=== PATIENT | female | born 1995 | race Caucasian/White ===

== ENCOUNTER 2017-12-03 18:05 | Emergency (ER) | payer OTHER ==
[2017-12-03 18:57] VITALS: BP 138/80
--- NOTE | 2017-12-03 19:29 | RAD ---
HISTORY: Left ankle pain, trauma, swelling COMPARISONS: None VIEWS: 3, Frontal, lateral, and oblique views of the left ankle FINDINGS: BONE DENSITY: Normal. BONES: There is no displaced fracture. JOINTS: There is no arthropathy. ALIGNMENT: There is no dislocation. SOFT TISSUES: There is circumferential soft tissue swelling OTHER FINDINGS: None. IMPRESSION: SOFT TISSUE SWELLING. NO ACUTE OSSEOUS INJURY. IF SYMPTOMS PERSIST, RECOMMEND REPEAT IMAGING.
--- NOTE | 2017-12-03 19:47 | UC ---
Lower Extremity/Ankle HPI - HPI Summary HPI Summary: Pt presents with left ankle pain. She tells me that earlier today she was walking down some steps and missed a step - sustained inversion injury to her left ankle. Was able to get up and ambulate, but with pain. She came to urgent care for further eval. Denies numbness, tingling, or previous injury. - History of Current Complaint Chief Complaint: UCLowerExtremity Stated Complaint: ANKLE INJURY Time Seen by Provider: 12/03/17 19:17 Hx Obtained From: Patient Hx Last Menstrual Period: 11/30/2017 Onset/Duration: Sudden Onset Severity Initially: Moderate Severity Currently: Moderate Pain Intensity: 6 Pain Scale Used: 0-10 Numeric Aggravating Factor(s): Standing, Ambulation Alleviating Factor(s): Rest, Elevation Able to Bear Weight: Yes - Allergies/Home Medications Allergies/Adverse Reactions: Allergies Allergy/AdvReac Type Severity Reaction Status Date / Time MS Penicillins [PCN] Allergy Rash Verified 12/03/17 18:57 PMH/Surg Hx/FS Hx/Imm Hx Previously Healthy: Yes - Surgical History Surgical History: None - Family History Known Family History: Positive: None - Social History Occupation: Student Lives: Dormitory/Roommates Alcohol Use: None Substance Use Type: None Smoking Status (MU): Never Smoked Tobacco Review of Systems Constitutional: Negative Skin: Negative Respiratory: Negative Cardiovascular: Negative Gastrointestinal: Negative Neurovascular: Negative Musculoskeletal: Other: - Left ankle Neurological: Negative Psychological: Negative All Other Systems Reviewed And Are Negative: Yes Physical Exam Triage Information Reviewed: Yes Appearance: Well-Appearing, No Pain Distress, Well-Nourished Vital Signs: Initial Vital Signs Temp 98.5 F 12/03/17 18:51 Pulse 105 12/03/17 18:51 Resp 16 12/03/17 18:51 BP 138/80 12/03/17 18:51 Pulse Ox 100 12/03/17 18:51 Vital Signs Reviewed: Yes Neck: Positive: Supple, Nontender, No Lymphadenopathy Respiratory: Positive: Lungs clear, No respiratory distress, No accessory muscle use Cardiovascular: Positive: RRR, No Murmur, Pulses Normal - DP and TP left Musculoskeletal: Positive: Strength Intact - Left ankle, ROM Intact - Left ankle , Edema @ - Left lateral malleolus - mild, Other: - Mild TTP over left posterior lateral malleolus. Negative talar tilt. No increased laxity, ecchymosis, or obvious bony deformities. Neurological: Positive: Alert, Other: - Sensations intact left foot and all toes Psychological: Positive: Age Appropriate Behavior Lower Extremity Course/Dx - Course Course Of Treatment: Ankle XR: IMPRESSION: SOFT TISSUE SWELLING. NO ACUTE OSSEOUS INJURY. Suspect left ankle sprain - gel splint, SILVESTRE wrap, and crutches as needed. RICE. Ibuprofen prn - Differential Dx/Diagnosis Provider Diagnoses: Left ankle sprain Discharge - Discharge Plan Condition: Stable Disposition: HOME Patient Education Materials: Ankle Sprain (DC) Referrals: No Primary Care Phys,NOPCP [Primary Care Provider] - Additional Instructions: If you develop a fever, shortness of breath, chest pain, new or worsening symptoms - please call your PCP or go to the ED. 1) Rest, Ice, and elevate your ankle as much as possible over the next 24-48 hours 2) May taken ibuprofen 800mg every 6-8hrs as needed for pain 3) Use the gel splint and crutches as needed for comfort.
== END 2017-12-03 20:05 | disposition home or self-care (01) ==
LOC: UCEAST 18:05
DX: S93.402A Sprain of unspecified ligament of left ankle, initial encounter (principal); W10.9XXA Fall (on) (from) unspecified stairs and steps, initial encounter; Y92.9 Unspecified place or not applicable; Z88.0 Allergy status to penicillin
CPT/HCPCS: 99202; G0463